=== PATIENT | female | born 1945 | race Caucasian/White ===

== ENCOUNTER 2018-07-01 15:20 | Outpatient (CLI) | payer MEDICARE, OTHER ==
[2018-07-07 09:30] LABS: CLOSTRIDIUM DIFFICILE ANTIGEN NEGATIVE; CLOSTRIDIUM DIFFICILE TOXIN NEGATIVE (Negative)
[2018-07-07 10:24] LABS: CRYPTOSPORIDIUM ANTIGEN Negative (Negative)
== END 2018-07-01 23:59 | disposition home or self-care (01) ==
LOC: LAB 15:20
PROVIDERS: ATTEND Nurse Practitioner Family
DX: R19.7 Diarrhea, unspecified (principal)
CPT/HCPCS: 87046; 87324; 87328; 87329; 87427